=== PATIENT | female | born 1975 | race Caucasian/White ===

== ENCOUNTER 2018-01-11 09:03 | Emergency (ER) | payer SELFPAY ==
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
[2018-01-11] MEDS ORDERED: ACETAMINOPHEN 1000 MG/100 ML VIAL (NON FORMULARY) IVPB ONE ×2 (09:21→09:45)
[2018-01-11 09:26] VITALS: BP 108/80; PULSE 94; TEMP 98.7; BMI 40.0
[2018-01-11] MEDS ORDERED: ACETAMINOPHEN INJECTION 100 ML IVPB ONE (09:47)
[2018-01-11 10:29] LABS: BASO % 0.4 % (0-2.0); HEMATOCRIT 38.1 % (32.4-45.2); HEMOGLOBIN 12.7 GM/dl (10.7-15.3); LYMPH % 21.8 % (8-40); MCH 27.3 pg (25.7-33.7); MCHC 33.4 g/dl (32.0-36.0); MEAN CELL VOLUME 81.7 fl (80-96); MEAN PLT VOLUME 9.8 fl (7.5-11.1); MONO % 5.3 % (3.8-10.2); NEUT % 71.5 % (42.8-82.8); PLATELET COUNT 355 K/MM3 (134-434); RBC 4.66 M/mm3 (3.60-5.2); RDW 13.9 % (11.6-15.6); WHITE BLOOD COUNT 10.8 K/mm3 (4.0-10.8)
[2018-01-11 10:35] LABS: ALBUMIN 3.4 g/dl (3.5-5.0); ALK PHOS 94 U/L (32-92); ANION GAP 7 (8-16); BLOOD UREA NITROGEN 10 mg/dl (7-18); CHLORIDE 103 mmol/L (98-107); CO2 25 mmol/L (22-28); GLUCOSE,RANDOM 94 mg/dl (74-106); POTASSIUM 4.1 mmol/L (3.5-5.1); SGOT/AST 18 U/L (10-42); SGPT/ALT 15 U/L (10-40); SODIUM 135 mmol/L (136-145); TOT PROT 6.9 g/dl (6.4-8.3)
[2018-01-11 10:53] LABS: BILIRUBIN,TOTAL < 0.5 mg/dl (0.2-1.0); CREATININE < 0.8 mg/dl (0.6-1.3)
[2018-01-11] MEDS ORDERED: KETOROLAC TROMETHAMINE 30 MG/1 ML VIAL IVPUSH ONE (12:55)
[2018-01-11] MEDS ORDERED: KETOROLAC TROMETHAMINE 30 MG/1 ML VIAL ONE (13:00)
== END 2018-01-11 13:55 | disposition home or self-care (01) ==
LOC: FER 09:03 → MERGE 09:03 → FER 13:55
PROC: 3E033GC Introduction of Other Therapeutic Substance into Peripheral Vein, Percutaneous Approach (ICD-10-PCS; principal; 2018-01-11)
PROC: 3E0333Z Introduction of Anti-inflammatory into Peripheral Vein, Percutaneous Approach (ICD-10-PCS; 2018-01-11)
DX: S13.4XXA Sprain of ligaments of cervical spine, initial encounter (principal); S39.012A Strain of muscle, fascia and tendon of lower back, initial encounter; V43.62XA Car passenger injured in collision with other type car in traffic accident, initial encounter; Y93.89 Activity, other specified; Y92.410 Unspecified street and highway as the place of occurrence of the external cause
CPT/HCPCS: 36415; 70450-TC; 72125-TC; 72128-TC; 72131-TC; 80053; 84703; 85025; 99283-25; J0131

== ENCOUNTER 2019-03-10 12:42 | Emergency (ER) | payer OTHER ==
[2019-03-10 12:59] VITALS: PULSE 105; TEMP 99; BMI 41.0
--- NOTE | 2019-03-10 13:01 | PDOC ---
History of Present Illness - General Chief Complaint: Diarrhea Stated Complaint: CONSTIPATION/DIARRHEA Time Seen by Provider: 03/10/19 12:47 History Source: Patient Exam Limitations: No Limitations - History of Present Illness Initial Comments: 03/10/19 12:47 43-year-old female no past medical history here today complaining of constipation, followed by loose stool and blood per rectum patient states she has recently been straining when she did go to the bathroom it was hard and painful. Following than thereafter she had some bright red blood with wiping. Denies any abdominal pain no weight loss no previous history of known hemorrhoids were GI bleeds. No fevers chills no abdominal pain Past History - Past Medical History Allergies/Adverse Reactions: Allergies Allergy/AdvReac Type Severity Reaction Status Date / Time No Known Allergies Allergy Verified 07/17/17 14:55 Home Medications: Ambulatory Orders NK [No Known Home Medication] 03/10/19 COPD: No Diabetes: No HTN: No - Surgical History Abdominal Surgery: Yes (MAGALIS TUBAL LIGATION) - Suicide/Smoking/Psychosocial Hx Smoking Status: No Smoking History: Never smoked Have you smoked in the past 12 months: No Number of Cigarettes Smoked Daily: 0 Hx Alcohol Use: No Drug/Substance Use Hx: No Substance Use Type: None Review of Systems - Review of Systems Able to Perform ROS?: Yes Is the patient limited Thai proficient: No Constitutional: No: Chills, Diaphoresis, Fever HEENTM: No: Eye Pain, Blurred Vision Respiratory: No: Cough, Orthopnea Cardiac (ROS): No: Chest Pain, Edema ABD/GI: Yes: Blood Streaked Bowels, Constipated, Rectal Bleeding All Other Systems: Reviewed and Negative *Physical Exam - Physical Exam Comments: 03/10/19 13:13 Patient awake alert no acute distress lungs are clear bilaterally heart is regular without any murmurs rubs or gallops abdomen is soft and nontender obese. Rectal exam is noted for scant stool in the vault there is a palpable hemorrhoid at the 12 o'clock position with some scarring from previous anal fissure. There is also an external skin tag otherwise the rectal exam is unremarkable extra is warm well perfused neurologically patient is alert and oriented 3 Medical Decision Making - Medical Decision Making 03/10/19 13:14 43-year-old female here today complaining of constipation followed by rectal bleeding which has since resolved and loose stool after drinking prune juice. Patient likely suffers from hemorrhoids base of her examination anal fissure we' ll recommend increase fiber and hydration also follow-up referral for gastroenterology. Patient can use [id number] Preparation H and sits soaks to help with itching and irritation stool "was sent pending 03/10/19 13:18 stool occult isnegative. will dc home. *DC/Admit/Observation/Transfer Diagnosis at time of Disposition: Constipation, Hemorrhoids, Anal fissure - Discharge Dispostion Disposition: HOME Condition at time of disposition: Improved Decision to Admit order: No - Referrals Referrals: Crhis Rodrigues MD [Staff Physician] - - Patient Instructions Printed Discharge Instructions: Hemorrhoids, Constipation Additional Instructions: You should drink plenty of liquids and add more fiber tear diet. He can use over -the-counter hemorrhoid creams such as tox pads or Preparation H. He can do sits soaks in a tub of water twice daily to help with itching and irritation. For persistent bleeding or concerns he should follow-up with her primary care doctor, you can also follow-up with a superintendent electric power inquire regarding outpatient colonoscopy. Please see referral information for Dr. Rodrigues, superintendent electric power plant controls specialist to schedule Print Language: K[place]ILI - Post Discharge Activity
[2019-03-10 13:19] VITALS: BP 157/106
== END 2019-03-10 13:25 | disposition home or self-care (01) ==
LOC: FER 12:42
DX: K59.00 Constipation, unspecified (principal); K60.2 Anal fissure, unspecified; K64.9 Unspecified hemorrhoids
CPT/HCPCS: 36415; 82272; 99282-25

== ENCOUNTER 2019-06-06 20:35 | Emergency (ER) | payer OTHER ==
[2019-06-06 20:41] VITALS: BP 137/76; PULSE 90; TEMP 98.1; BMI 39.8
[2019-06-06] MEDS ORDERED: KETOROLAC TROMETHAMINE 30 MG/1 ML VIAL IVPUSH ONE (21:08)
[2019-06-06] MEDS ORDERED: METOCLOPRAMIDE HCL 10 MG TABLET (FP) PO ONE (21:08)
[2019-06-06] MEDS ORDERED: METOCLOPRAMIDE HCL INJECTION 10 MG/2 ML VIAL IVPUSH ONE (21:22)
[2019-06-06] MEDS ORDERED: HYOSCYAMINE SULFATE 0.125 MG *ODT PO ONE (21:23)
[2019-06-06] MEDS ORDERED: KETOROLAC TROMETHAMINE 30 MG/1 ML VIAL ONE (21:27)
[2019-06-06] MEDS ORDERED: METOCLOPRAMIDE HCL INJECTION 10 MG/2 ML VIAL ONE (21:28)
[2019-06-06] MEDS ORDERED: HYOSCYAMINE SULFATE 0.125 MG *ODT ONE (21:28)
[2019-06-06 21:32] LABS: HEMATOCRIT 37.3 % (32.4-45.2); HEMOGLOBIN 12.1 GM/dl (10.7-15.3); MCHC 32.5 g/dl (32.0-36.0); MEAN CELL VOLUME 83.2 fl (80-96); PLATELET COUNT 307 K/MM3 (134-434); RBC 4.48 M/mm3 (3.60-5.2); RDW 14.1 % (11.6-15.6); WHITE BLOOD COUNT 9.2 K/mm3 (4.0-10.8)
[2019-06-06 21:45] LABS: ALBUMIN 3.7 g/dl (3.4-5.0); BILIRUBIN,TOTAL 0.2 mg/dl (0.2-1); CALCIUM 9.1 mg/dl (8.5-10); CREATININE 0.6 mg/dl (0.55-1.3); TOT PROT 6.8 g/dl (6.4-8.2)
--- NOTE | 2019-06-06 22:17 | PDOC ---
Documentation entered by Neelima Gómez SCRIBE, acting as scribe for Floridalma Marin MD. Floridalma Marin MD: This documentation has been prepared by the Dalia kennedy Sammi, SCRIBE, under my direction and personally reviewed by me in its entirety. I confirm that the documentation accurately reflects all work, treatment, procedures, and medical decision making performed by me. History of Present Illness - General Chief Complaint: Lightheaded Stated Complaint: VERTIGO History Source: Patient Exam Limitations: No Limitations - History of Present Illness Initial Comments: 06/06/19 21:00 The patient is a 43 year old female who presents to the emergency department for evaluation of a frontal headache since 6:30pm with associated vomiting x3, sweating, and dizziness. The patient reports onset of abdominal pain after vomiting. PAST MEDICAL HISTORY: vertigo (3 years ago) PAST SURGICAL HISTORY: no significant history FAMILY HISTORY: no pertinent history SOCIAL HISTORY: Pt lives with family and is employed. MEDICATIONS: reviewed ALLERGIES: As per nursing notes Adult ROS General: (+)sweating. No fevers or chills, no weakness, no weight loss HEENT: No change in vision. No sore throat,. No ear pain CardioVascular: No chest pain or shortness of breath Respiratory:No cough, or wheezing. Gastrointestinal: (+)abdominal pain. (+)vomit. Denies constipation or diarrhea. Genitourinary: No dysuria, hematuria, or frequency Musculoskeletal: No joint or muscle pain or swelling Neurologic: (+)headache. (+)dizziness. No loss of consciousness All other systems reviewed and normal Adult Exam: General: Well-nourished well-developed individual, no acute distress HEENT: Throat: Normal, tonsils normal, no erythema or exudate Neck: Supple, no meningeal signs, no lymphadenopathy Eyes::Pupils equal reactive and round, extraocular motion intact Chest: Nontender to palpation Cardiac: S1-S2 normal, regular rate and rhythm, no murmurs rubs or gallops Respiratory: Lungs clear to auscultation bilateral Abdomen: (+)Slight increase in bowel sounds (+)Mild diffuse tenderness of abdomen. Soft, nondistended. Extremities: Warm, dry, no cyanosis, clubbing, or edema Skin: No rashes Neuro: Alert and oriented x3, nonfocal exam, grossly intact, normal gait Psych: Normal mood and affect 06/06/19 21:10 Assessment and plan: This is a 43-year-old female who comes in complaining of a headache and the some nausea, abdominal pain and vomited times one. Patient had a similar episode in the past and was told that she may have recurrence of the headaches/migraines. Up was initiated including head CT, CBC and comp. Patient given Toradol, Reglan and hyoscyamine. 06/06/19 21:11 06/06/19 22:15 Reevaluation patient feels that her post medication. Patient's workup was negative including a negative/normal CAT scan and lab work. Patient discharged and will follow-up with her primary care Past History - Past Medical History Allergies/Adverse Reactions: Allergies Allergy/AdvReac Type Severity Reaction Status Date / Time No Known Allergies Allergy Verified 07/17/17 14:55 Home Medications: Ambulatory Orders NK [No Known Home Medication] 03/10/19 COPD: No Diabetes: No HTN: No Other medical history: VERTIGO - Surgical History Abdominal Surgery: Yes (MAGALIS TUBAL LIGATION) - Psycho Social/Smoking Cessation Hx Smoking Status: No Smoking History: Unknown if ever smoked Have you smoked in the past 12 months: No Number of Cigarettes Smoked Daily: 0 Information on smoking cessation initiated: No Hx Alcohol Use: No Drug/Substance Use Hx: No Substance Use Type: None *Physical Exam - Vital Signs Last Vital Signs Temp Pulse Resp BP Pulse Ox 98.1 F 90 14 137/76 100 06/06/19 20:38 06/06/19 20:38 06/06/19 20:38 06/06/19 20:38 06/06/19 20:38 ED Treatment Course - LABORATORY CBC & Chemistry Diagram: 06/06/19 21:20 06/06/19 21:20 - RADIOLOGY Radiology Studies Ordered: Category Date Time Status HEAD CT WITHOUT CONTRAST [CT] Stat CT Scan 06/06/19 21:09 Ordered Discharge - Discharge Information Problems reviewed: Yes Clinical Impression/Diagnosis: Headache Qualifiers: Headache type: unspecified Headache chronicity pattern: unspecified pattern Intractability: not intractable Qualified Code(s): R51 - Headache Condition: Good Disposition: HOME - Admission No - Follow up/Referral - Patient Discharge Instructions Additional Instructions: Tylenol or Motrin as needed for the headache. Return to the emergency department immediately with ANY new, persistent or worsening symptoms. Continue any medications as previously prescribed by your physician. You should follow up with your primary doctor as soon as possible regarding today's emergency department visit. . Please make sure your doctor reviews the results of your emergency evaluation. Thank you for coming to the Emergency Department today for your care. It was a pleasure to see you today. Please note that your evaluation is INCOMPLETE until you follow-up with your doctor. - Post Discharge Activity
[2019-06-06 22:42] LABS: PLATELET ESTIMATE ADEQUATE
== END 2019-06-06 22:19 | disposition home or self-care (01) ==
LOC: FER 20:35
PROC: 3E0333Z Introduction of Anti-inflammatory into Peripheral Vein, Percutaneous Approach (ICD-10-PCS; principal; 2019-06-06)
PROC: 3E033GC Introduction of Other Therapeutic Substance into Peripheral Vein, Percutaneous Approach (ICD-10-PCS; 2019-06-06)
DX: R51 Headache (principal)
CPT/HCPCS: 36415; 70450-TC; 80053; 85025; 99283-25

== ENCOUNTER 2021-04-07 19:33 | Emergency (ER) | payer OTHER ==
[2021-04-07 20:04] VITALS: BP 132/84; PULSE 96; TEMP 98.5; BMI 43.0
[2021-04-07] MEDS ORDERED: LIDOCAINE 1%/EPI 1:100000 (20 ML MULTI DOSE VIAL) ONE (22:37)
== END 2021-04-07 23:05 | disposition home or self-care (01) ==
LOC: JER 19:33
DX: S01.01XA Laceration without foreign body of scalp, initial encounter (principal); S09.90XA Unspecified injury of head, initial encounter; W22.8XXA Striking against or struck by other objects, initial encounter
CPT/HCPCS: 99283-25